=== PATIENT | male | born 1980 | race Caucasian/White ===

== ENCOUNTER 2022-06-12 11:06 | Emergency (ER) | payer MEDICAID ==
[~2022-06-12] VITALS: Ht 167.6 cm; Wt 80.0 kg
[2022-06-12 11:12] VITALS: BP 138/77
[2022-06-12] MEDS ORDERED: ACETAMINOPHEN 325MG TABLET PO ONE (13:00)
[2022-06-12] MEDS ORDERED: CETIRIZINE 10MG TABLET PO SCH (13:00)
[2022-06-12] MEDS ORDERED: ACET-2708 MT (15:43)
[2022-06-12] MEDS ORDERED: FLUT9.9S BOTHNSTRLS (15:43)
[2022-06-12] MEDS ORDERED: CETI-89 MT (15:43)
== END 2022-06-12 16:04 | disposition home or self-care (01) ==
LOC: ER 11:06
DX: R05.9 Cough, unspecified (principal); J34.89 Other specified disorders of nose and nasal sinuses; Z20.822 Contact with and (suspected) exposure to COVID-19
CPT/HCPCS: 71045; 87426; 87804; 99284; C9803